=== PATIENT | male | born 1985 | race Caucasian/White ===

== ENCOUNTER 2022-05-16 22:24 | Emergency (ER) | payer OTHER ==
[~2022-05-16] VITALS: Ht 177.8 cm; Wt 95.5 kg
[2022-05-17] MEDS ORDERED: NORV5TAB PO (00:20)
[2022-05-17] MEDS ORDERED: CELE1CAP4 PO (00:20)
[2022-05-17] MEDS ORDERED: RIZA5TAB2 PO (00:23)
[2022-05-17] MEDS ORDERED: NEUR300C PO (00:23)
[2022-05-17] MEDS ORDERED: AMIT25TA17 PO (00:23)
[2022-05-17 00:58] LABS: BASO # 0.1 10^3/uL (0.0-0.2); BASO % 0.4 % (0.0-1.0); EOS # 0.1 10^3/uL (0.0-0.5); EOS % 0.6 % (0.0-3.0); HEMATOCRIT 44.8 % (42.0-52.0); HEMOGLOBIN 14.7 g/dl (13.5-17.5); LYMPH # 0.4 10^3/uL (1.5-5.0); LYMPH % 3.4 % (24.0-44.0); MEAN CORPUSCULAR HEMOGLOBIN 28.5 pg (27.0-33.0); MEAN CORPUSCULAR HGB CONC 32.8 g/dl (32.0-36.5); MONO # 0.5 10^3/uL (0.0-0.8); MONO % 4.4 % (2.0-8.0); NEUTROPHILS # 11.1 10^3/uL (1.5-8.5); NEUTROPHILS % 90.9 % (36.0-66.0); PLATELET COUNT, AUTOMATED 214 10^3/uL (150-450); RED BLOOD COUNT 5.15 10^6/uL (4.30-6.10); WHITE BLOOD COUNT 12.2 10^3/uL (4.0-10.0)
[2022-05-17 01:35] LABS: LIPASE 38 U/L (12-53)
[2022-05-17 01:36] LABS: BILIRUBIN,DIRECT 0.3 MG/DL (<0.4)
[2022-05-17 01:37] LABS: ALBUMIN 4.4 G/DL (3.2-5.2); ALKALINE PHOSPHATASE 109 U/L (46-116); ALT/SGPT 155 U/L (7.0-40); AST/SGOT 161 U/L (<34); BILIRUBIN,TOTAL 0.7 MG/DL (0.3-1.2); BLOOD UREA NITROGEN 17 MG/DL (9-23); CALCIUM LEVEL 9.5 MG/DL (8.5-10.1); CARBON DIOXIDE LEVEL 26 MMOL/L (20-31); CHLORIDE LEVEL 104 MMOL/L (98-107); CREATININE FOR GFR 0.96 MG/DL (0.70-1.30); GLOMERULAR FILTRATION RATE > 60.0 (>60); GLUCOSE, FASTING 119 MG/DL (60-100); POTASSIUM SERUM 4.4 MMOL/L (3.5-5.1); SODIUM LEVEL 139 MMOL/L (136-145); TOTAL PROTEIN 7.5 G/DL (5.7-8.2)
[2022-05-17] MEDS ORDERED: ONDANSETRON 4MG 2ML VIAL IV ONE (07:10)
[2022-05-17] MEDS ORDERED: KETOROLAC 30 MG/ML 1ML VIAL IV ONE (07:10)
[2022-05-17] MEDS ORDERED: NS 1,000 ML IV ONE ×2 (07:10→09:30)
[2022-05-17] MEDS ORDERED: PANTOPRAZOLE 40MG VIAL IV ONE (07:10)
[2022-05-17] MEDS ORDERED: ISOVUE-370 76% 100ML VIAL As Ordered ONE (07:30)
[2022-05-17 11:38] VITALS: BP 127/79
[2022-05-17] MEDS ORDERED: ONDA4TAB6 PO (11:47)
== END 2022-05-17 12:01 | disposition home or self-care (01) ==
LOC: M ED 22:24
DX: K52.9 Noninfective gastroenteritis and colitis, unspecified (principal); K76.0 Fatty (change of) liver, not elsewhere classified; K76.89 Other specified diseases of liver; E86.0 Dehydration; I10 Essential (primary) hypertension; Z91.048 Other nonmedicinal substance allergy status; Z79.899 Other long term (current) drug therapy
CPT/HCPCS: 74177; 80048; 80076; 81000; 81015; 83690; 85025; 87428; 87507; 96361; 96374; 96375; 99284; C9113; J2405

== ENCOUNTER → 2022-05-17 | Outpatient (REF) | payer OTHER ==
[~2022-05-17] MED LIST: AMIT25TA17 PO; CELE1CAP4 PO; NEUR300C PO; NORV5TAB PO; ONDA4TAB6 PO; RIZA5TAB2 PO
== END ==
LOC: M LAB REF 13:11
PROVIDERS: ATTEND Physician Assistant
DX: R10.9 Unspecified abdominal pain (principal)

== ENCOUNTER → 2022-05-28 | Outpatient (CLI) | payer OTHER ==
[2022-05-29 16:08] LABS: TESTOSTERONE FREE (DIRECT) 20.9 pg/mL (8.7-25.1)
== END ==
LOC: M LAB 08:30
PROVIDERS: ATTEND Nurse Practitioner Women's Health
DX: N52.01 Erectile dysfunction due to arterial insufficiency (principal)

== ENCOUNTER → 2022-05-28 | Outpatient (CLI) | payer OTHER | LOC: M RAD 13:57 → EDUNIT# 14:30 | PROVIDERS: ATTEND Nurse Practitioner Women's Health | DX: N50.819 Testicular pain, unspecified (principal); N43.3 Hydrocele, unspecified ==

== ENCOUNTER 2023-01-28 11:53 | Day surgery (SDC) | payer OTHER ==
[~2023-01-28] VITALS: Ht 177.8 cm; Wt 96.8 kg
[~2023-01-28 11:53] MED LIST changes: -AMIT25TA17 PO; +AMIT25TA19 PO; +AMLO1TAB24 PO; +CELE0.09 PO; +CYCL5TAB PO; +GABA-282 PO; +LIDO1PAD TOP; +NS 1,000 ML IV ONE; +OMEP40CA5 PO; +RIZA10TA58 PO
[2023-01-28] MEDS ORDERED: propofoL 200 MG/20 ML VIAL As Ordered ONE (13:33)
[2023-01-28] MEDS ORDERED: GLYCOPYRROLATE INJ 0.2 MG/ML 2 ML VIAL As Ordered ONE (13:33)
[2023-01-28] MEDS ORDERED: LIDOCAINE 2% 100MG/5ML SDV (FOR ANES.) As Ordered ONE (13:33)
[2023-01-28 14:00] VITALS: TEMP 98.6
[2023-01-28 14:20] VITALS: BP 132/87; O2SAT 98
== END 2023-01-28 15:20 | disposition home or self-care (01) ==
LOC: M OPP 11:53
PROVIDERS: ATTEND Internal Medicine Gastroenterology
DX: R10.32 Left lower quadrant pain (principal); F17.290 Nicotine dependence, other tobacco product, uncomplicated; Z79.1 Long term (current) use of non-steroidal anti-inflammatories (NSAID); Z79.891 Long term (current) use of opiate analgesic; Z79.899 Other long term (current) drug therapy; Z91.048 Other nonmedicinal substance allergy status